=== PATIENT | female | born 1955 | race Caucasian/White ===

== ENCOUNTER → 2016-08-17 | Outpatient (CLI) | payer BC ==
[~2016-08-17] MED LIST: CARDIZEM CD180 MG PO; CELEXA20 MG PO; COREG 12.5MG12.5 MG PO; DULERA 200 MCG8.8 GM INH; GLUCOPHAGE 500500 MG PO; IMITREX100 MG PO; PRAVACHOL40 MG PO; PROAIR HFA8.5 GM INH; PYRIDIUM100 MG PO; SINGULAIR10 MG PO; TOPAMAX50 MG PO; XYZAL5 MG PO; ZANTAC150 MG PO
== END ==
LOC: RAD 17:07
DX: R05 Cough (principal); J98.09 Other diseases of bronchus, not elsewhere classified; R91.1 Solitary pulmonary nodule
CPT/HCPCS: 71020

== ENCOUNTER 2020-03-16 14:21 | Emergency (ER) | payer MEDICARE, OTHER ==
[2020-03-16 15:16] LABS: HEMOGLOBIN 12.5 gm/dl (12.3-15.3); RED BLOOD COUNT 4.32 M/UL (4.00-5.10); WHITE BLOOD COUNT 10.1 K/UL (4.5-11.0)
[2020-03-16 15:48] LABS: BUN/CREATININE RATIO 22 (0-10)
[2020-03-16] MEDS ORDERED: AUGMENTIN 875-1 EACH PO (17:46)
== END 2020-03-16 17:59 | disposition home or self-care (01) ==
LOC: ER1 14:21
PROVIDERS: Emergency Medicine
DX: K52.9 Noninfective gastroenteritis and colitis, unspecified (principal); I10 Essential (primary) hypertension; E11.9 Type 2 diabetes mellitus without complications; Z85.118 Personal history of other malignant neoplasm of bronchus and lung; Z85.3 Personal history of malignant neoplasm of breast; Z98.51 Tubal ligation status; Z98.890 Other specified postprocedural states
CPT/HCPCS: 80053; 81001; 82150; 83690; 85025; 87086; 96374; 96375; 99284; J2270; J2405; Q9967

== ENCOUNTER → 2020-03-25 | Outpatient (CLI) | payer MEDICARE, OTHER ==
[~2020-03-25] MED LIST changes: +AUGMENTIN 875-1 EACH PO; +PROTONIX40 MG PO
== END ==
LOC: RAD 13:07
DX: J18.9 Pneumonia, unspecified organism (principal)
CPT/HCPCS: 71046

== ENCOUNTER 2020-03-26 06:17 | Emergency (ER) | payer MEDICARE, OTHER ==
[~2020-03-26 06:17] MED LIST changes: -PROTONIX40 MG PO
[2020-03-26 07:25] LABS: HEMOGLOBIN 13.1 gm/dl (12.3-15.3); RED BLOOD COUNT 4.58 M/UL (4.00-5.10); WHITE BLOOD COUNT 10.9 K/UL (4.5-11.0)
[2020-03-26 07:50] LABS: BUN/CREATININE RATIO 23 (0-10)
== END 2020-03-26 12:10 | disposition home or self-care (01) ==
LOC: ER1 06:17
PROVIDERS: Emergency Medicine
DX: R10.9 Unspecified abdominal pain (principal); M54.9 Dorsalgia, unspecified; R11.0 Nausea; E11.9 Type 2 diabetes mellitus without complications; I10 Essential (primary) hypertension; Z85.3 Personal history of malignant neoplasm of breast; Z85.118 Personal history of other malignant neoplasm of bronchus and lung; Z98.890 Other specified postprocedural states
CPT/HCPCS: 80053; 81001; 82550; 82553; 83605; 83690; 83874; 84484; 85025; 93005; 96374; 96375; 99284; J1170; J2270; J2405; J7030; Q9967

== ENCOUNTER → 2020-04-01 | Outpatient (CLI) | payer MEDICARE, OTHER ==
[~2020-04-01] MED LIST changes: +PROTONIX40 MG PO
== END ==
LOC: RAD 09:19
DX: M54.5 Low back pain (principal); M25.551 Pain in right hip; M43.16 Spondylolisthesis, lumbar region; M51.36 Other intervertebral disc degeneration, lumbar region
CPT/HCPCS: 72100; 73502

== ENCOUNTER → 2020-05-06 | Outpatient (CLI) | payer MEDICARE, OTHER | LOC: KOH-I 10:09 | DX: R09.89 Other specified symptoms and signs involving the circulatory and respiratory systems (principal) | CPT/HCPCS: 70220 ==

== ENCOUNTER → 2020-05-25 | Outpatient (CLI) | payer MEDICARE, OTHER | LOC: KOH-I 13:14 | DX: S89.91XA Unspecified injury of right lower leg, initial encounter (principal); M79.661 Pain in right lower leg; M79.89 Other specified soft tissue disorders | CPT/HCPCS: 73700; 93971 ==

== ENCOUNTER → 2020-06-24 | Outpatient (CLI) | payer MEDICARE, OTHER | LOC: KOH-I 14:45 | DX: M79.661 Pain in right lower leg (principal) | CPT/HCPCS: 73590 ==

== ENCOUNTER 2020-08-20 16:44 | Emergency (ER) | payer MEDICARE, OTHER ==
[~2020-08-20 16:44] MED LIST changes: -PROTONIX40 MG PO
[2020-08-20 18:06] LABS: HEMOGLOBIN 12.9 gm/dl (12.3-15.3); RED BLOOD COUNT 4.35 M/UL (4.00-5.10); WHITE BLOOD COUNT 16.7 K/UL (4.5-11.0)
[2020-08-20 18:24] LABS: BUN/CREATININE RATIO 20 (0-10)
[2020-08-20] MEDS ORDERED: PROTONIX40 MG PO (21:57)
== END 2020-08-20 22:24 | disposition home or self-care (01) ==
LOC: ER1 16:44
PROVIDERS: Physician Assistant
DX: R07.9 Chest pain, unspecified (principal); E11.9 Type 2 diabetes mellitus without complications; I10 Essential (primary) hypertension; Z20.822 Contact with and (suspected) exposure to COVID-19
CPT/HCPCS: 0240U; 71045; 80053; 81001; 82550; 82553; 83690; 83874; 84484; 85025; 93005; 96374; 99284

== ENCOUNTER → 2021-01-11 | Outpatient (CLI) | payer MEDICARE, OTHER ==
[~2021-01-11] MED LIST changes: +PROTONIX40 MG PO
[2021-01-12 10:14] LABS: HBSAG SCREEN Negative (Negative); HEP A AB, IGM Negative (Negative); HEP B CORE AB, IGM Negative (Negative); HEP C VIRUS AB <0.1 (0.0-0.9)
== END ==
LOC: LAB 11:11
PROVIDERS: Physician Assistant
DX: K76.0 Fatty (change of) liver, not elsewhere classified (principal); R16.0 Hepatomegaly, not elsewhere classified; K21.9 Gastro-esophageal reflux disease without esophagitis; D12.6 Benign neoplasm of colon, unspecified
CPT/HCPCS: 36415; 80074; 82728; 83540

== ENCOUNTER → 2021-07-19 | Outpatient (CLI) | payer MEDICARE, OTHER | LOC: KOH-I 10:39 | DX: R07.9 Chest pain, unspecified (principal) | CPT/HCPCS: 71045; 71101 ==